=== PATIENT | male | born 1965 | race Caucasian/White ===

== ENCOUNTER 2018-05-10 19:44 | Emergency (ER) | payer MEDICARE ==
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
--- NOTE | 2018-05-10 20:54 | RAD ---
EXAM: Chest,1 View CLINICAL INDICATION: Left flank pain COMPARISON: There is no previous study for comparison. FINDINGS: A single view of the chest was obtained. The heart size is normal. The pulmonary vascularity is unremarkable. The lungs are clear. There is no consolidation, infiltrate, pleural effusion, or pneumothorax. Old healed left-sided rib fractures are incidentally noted. IMPRESSION: Normal chest radiograph. Electronically signed by: Evan Chun MD 05/10/2018 8:52 PM CDT
[2018-05-10] MEDS ORDERED: SODIUM CHLORIDE 0.9% 1000ML 1,000 ML IVS ONE (21:07)
--- NOTE | 2018-05-10 21:56 | CT ---
EXAM: Abdomen/Pelvis w/wo Contrast CLINICAL INDICATION: Abdominal pain COMPARISON: There is no previous study for comparison. TECHNIQUE: The CT scan was done using contiguous axial pre and postcontrast 5 mm sections through the abdomen and pelvis including IV contrast. This exam was performed according to our departmental dose-optimization program, which includes automated exposure control, adjustment of the mA and/or kV according to patient size and/or use of iterative reconstruction technique. FINDINGS: The visualized portions of the lung bases contain minimal foci of subsegmental atelectasis but are otherwise clear. Review of precontrast images reveals a 2.3 mm stone in the lower pole of the left kidney, a 4.2 x 1.9 mm stone in the upper pole of the left kidney and another 2 mm stone in the upper pole of the left kidney. No ureteral stone or hydronephrosis is identified on either side. The kidneys are otherwise unremarkable. The liver, gallbladder, adrenal glands, spleen, and pancreas have an unremarkable CT appearance. The aorta is normal in caliber. There are no dilated loops of small bowel. Diverticulosis of the colon is identified without findings of acute diverticulitis. The appendix is normal. There is no free air, free fluid, or abscess. IMPRESSION: 1. No evidence of an acute intra-abdominal process. 2. Nonobstructing stones in both kidneys. 3. Diverticulosis. Electronically signed by: Evan Chun MD 05/10/2018 9:55 PM CDT
[2018-05-10 22:12] VITALS: O2SAT 99
[2018-05-10 22:24] VITALS: BP 137/84; TEMP 98.6
== END 2018-05-10 22:23 | disposition home or self-care (01) ==
LOC: ER 19:44
DX: R10.9 Unspecified abdominal pain (principal); M54.5 Low back pain; I10 Essential (primary) hypertension; B20 Human immunodeficiency virus [HIV] disease; F15.90 Other stimulant use, unspecified, uncomplicated; Z79.899 Other long term (current) drug therapy
CPT/HCPCS: 36415; 71045; 74178; 80053; 80307; 80320; 80329; 81001; 85025; J7030